=== PATIENT | female | born 1940 | race Caucasian/White ===

== ENCOUNTER 2017-08-01 13:18 | Inpatient (IN) | payer MEDICARE, OTHER ==
[2017-08-01 13:28] LABS: POC GLUCOSE 332 mg/dL (70-99)
[2017-08-01 13:49] LABS: ADD MAN DIFF? NO; BASO # 0.1 x10^3/uL (0.0-0.2); BASO % 1 % (0-3); EOS # 0.3 x10^3/uL (0.0-0.7); EOS % 3 % (0-3); HEMATOCRIT 38.5 % (36.0-47.0); HEMOGLOBIN 12.7 g/dL (12.0-15.5); LYMPH # 2.8 x10^3/uL (1.0-4.8); LYMPH % 28 % (24-48); MEAN CORPUSCULAR HEMOGLOBIN 30 pg (25-35); MEAN CORPUSCULAR HGB CONC 33 g/dL (31-37); MEAN CORPUSCULAR VOLUME 91 fL (79-100); MONO # 0.5 x10^3/uL (0.0-1.1); MONO % 5 % (0-9); NEUT # 6.4 x10^3uL (1.8-7.7); NEUT % 63 % (31-73); PLATELET COUNT 328 x10^3/uL (140-400); RED BLOOD COUNT 4.21 x10^6/uL (3.50-5.40); RED CELL DISTRIBUTION WIDTH 13.8 % (11.5-14.5); WHITE BLOOD COUNT 10.2 x10^3/uL (4.0-11.0)
[2017-08-01 13:55] LABS: AGAP ISTAT 13 mmol/L (6-14); BUN ISTAT 17 mg/dL (8-26); CHLORIDE ISTAT 100 mmol/L (98-110); CREATININE ISTAT 0.7 mg/dL (0.5-1.4); GLUCOSE ISTAT 340 mg/dL (70-99); HEMATOCRIT ISTAT 37 % (36-40); HEMOGLOBIN ISTAT 12.6 g/dL (12-15); ION CA ISTAT 1.29 mmol/L (1.13-1.32); POTASSIUM ISTAT 4.1 mmol/L (3.5-5.0); SODIUM ISTAT 136 mmol/L (135-145); TOT CO2 ISTAT 28 mmol/L (23-32)
[2017-08-01 14:06] LABS: ANION GAP 11 (6-14); BLOOD UREA NITROGEN 18 mg/dL (7-20); BUN/CREATININE RATIO 23 (6-20); CALCIUM 9.4 mg/dL (8.5-10.1); CARBON DIOXIDE 25 mmol/L (21-32); CHLORIDE 100 mmol/L (98-107); CREATININE 0.8 mg/dL (0.6-1.0); GFR 69.4; GLUCOSE 350 mg/dL (70-99); POTASSIUM 4.1 mmol/L (3.5-5.1); SODIUM 136 mmol/L (136-145)
[2017-08-01 14:12] LABS: ALBUMIN 3.6 g/dL (3.4-5.0); ALBUMIN/GLOBULIN RATIO 0.8 (1.0-1.7); ALK PHOS 102 U/L (46-116); ALT (SGPT) 17 U/L (14-59); AST (SGOT) 17 U/L (15-37); TOTAL BILIRUBIN 0.4 mg/dL (0.2-1.0); TOTAL PROTEIN 7.9 g/dL (6.4-8.2)
[2017-08-01 14:15] LABS: TROPONINI < 0.017 ng/mL (0.000-0.055)
[2017-08-01] MEDS: diphenhydrAMINE HCL 25 MG CAPSULE PO ×2 (14:15→21:13)
[2017-08-01 14:31] LABS: BILIRUBIN,URINE NEGATIVE (NEG); CLARITY,URINE CLOUDY; COLOR,URINE YELLOW; GLUCOSE,URINE >=1000 mg/dL (NEG); NITRITE,URINE NEGATIVE (NEG); PH,URINE 6.5; PROTEIN,URINE NEGATIVE (NEG-TRACE); UROBILINOGEN,URINE 0.2 mg/dL (0.2 mg/dL)
[2017-08-01 14:37] LABS: BACTERIA,URINE FEW /HPF (0-FEW); RBC,URINE 0 /HPF (0-2); SQUAMOUS EPITHELIAL CELL,UR FEW /LPF
[2017-08-01 14:52] LABS: NT-PRO BNP 222 pg/mL (0-449)
[2017-08-01] MEDS: diphenhydrAMINE ORAL ELIXIR 12.5 MG/5 ML ML PO (15:08)
[2017-08-01] MEDS: IV NORMAL SALINE 500ML BAG 500 ML IV (15:30)
[2017-08-01 16:16] LABS: INFLUENZA A PATIENT NEGATIVE (NEGATIVE); INFLUENZA B PATIENT NEGATIVE (NEGATIVE); OBC FLU VALID
[2017-08-01 17:33] LABS: POC GLUCOSE 250 mg/dL (70-99)
[2017-08-01] MEDS ORDERED: HYDROcodone/APAP 5/325MG 1 TAB TABLET PO (18:45)
[2017-08-01] MEDS ORDERED: DEXTROSE 50% 25 GM / 50ML DISP.SYRIN. IV (18:45)
[2017-08-01] MEDS ORDERED: ACETAMINOPHEN 325 MG TABLET. PO (20:30)
[2017-08-01 20:51] LABS: POC GLUCOSE 269 mg/dL (70-99)
[2017-08-01] MEDS ORDERED: INSULIN DETEMIR 300 UNITS/3 ML INSULN.PEN. SQ (21:00)
[2017-08-01] MEDS: HYDROcodone/APAP 7.5/325MG 1 TAB TABLET PO (21:13)
[2017-08-01] MEDS: ATORVASTATIN CALCIUM 40 MG TABLET. PO (21:13)
[2017-08-01] MEDS: PHENAZOPYRIDINE 200 MG TABLET. PO (21:13)
[2017-08-01] MEDS: EXENATIDE 10 MCG/0.04 ML 2.4ML PEN.INJCTR. SQ (21:21)
[2017-08-01] MEDS: INSULIN DETEMIR 300 UNITS/3 ML INSULN.PEN. SQ (21:22)
[2017-08-02] MEDS: ZOLPIDEM 5 MG TABLET. PO ×2 (01:15→20:35)
[2017-08-02] MEDS: CYCLOBENZAPRINE 10 MG TABLET. PO (01:15)
[2017-08-02 08:06] LABS: POC GLUCOSE 241 mg/dL (70-99)
[2017-08-02] MEDS: INSULIN ASPART 300 UNITS/3 ML INSULN.PEN SQ ×3 (08:43→17:36)
[2017-08-02 12:06] LABS: POC GLUCOSE 192 mg/dL (70-99)
[2017-08-02] MEDS: CETIRIZINE HCL 10 MG TABLET. PO (13:28)
[2017-08-02 17:15] LABS: POC GLUCOSE 167 mg/dL (70-99)
[2017-08-02] MEDS: diphenhydrAMINE HCL 25 MG CAPSULE PO (17:32)
[2017-08-02 20:28] LABS: POC GLUCOSE 217 mg/dL (70-99)
[2017-08-02] MEDS: ATORVASTATIN CALCIUM 40 MG TABLET. PO (20:35)
[2017-08-02] MEDS: HYDROcodone/APAP 7.5/325MG 1 TAB TABLET PO (20:36)
[2017-08-02] MEDS: INSULIN DETEMIR 300 UNITS/3 ML INSULN.PEN. SQ (20:40)
[2017-08-03] MEDS: diphenhydrAMINE HCL 25 MG CAPSULE PO ×3 (03:50→20:50)
[2017-08-03] MEDS: PHENAZOPYRIDINE 200 MG TABLET. PO (03:52)
[2017-08-03 07:58] LABS: POC GLUCOSE 201 mg/dL (70-99)
[2017-08-03] MEDS: POTASSIUM CHLORIDE 20 MEQ TABLET.ER. PO (08:33)
[2017-08-03] MEDS: PIOGLITAZONE 15 MG TABLET. PO (08:33)
[2017-08-03] MEDS: PANTOPRAZOLE 40 MG TABLET.DR. PO (08:33)
[2017-08-03] MEDS: LACTOBACILLUS RHAMNOSUS GG 1 CAPSULE. PO ×2 (08:34→20:50)
[2017-08-03] MEDS: LISINOPRIL 5 MG TABLET. PO (08:34)
[2017-08-03] MEDS: EXENATIDE 10 MCG/0.04 ML 2.4ML PEN.INJCTR. SQ ×2 (08:34→17:13)
[2017-08-03] MEDS: CETIRIZINE HCL 10 MG TABLET. PO (08:34)
[2017-08-03] MEDS: INSULIN ASPART 300 UNITS/3 ML INSULN.PEN SQ ×3 (08:42→17:15)
[2017-08-03] MEDS ORDERED: CETIRIZINE HCL 10 MG TABLET. PO (09:00)
[2017-08-03] MEDS: HYDROcodone/APAP 7.5/325MG 1 TAB TABLET PO ×2 (11:05→20:53)
[2017-08-03 11:30] LABS: POC GLUCOSE 162 mg/dL (70-99)
[2017-08-03 13:23] LABS: POC GLUCOSE 170 mg/dL (70-99)
[2017-08-03 16:34] LABS: POC GLUCOSE 158 mg/dL (70-99)
[2017-08-03] MEDS: ATORVASTATIN CALCIUM 40 MG TABLET. PO (20:50)
[2017-08-03] MEDS: INSULIN DETEMIR 300 UNITS/3 ML INSULN.PEN. SQ (21:08)
[2017-08-03 21:09] LABS: POC GLUCOSE 162 mg/dL (70-99)
[2017-08-04] MEDS: diphenhydrAMINE HCL 25 MG CAPSULE PO (05:43)
[2017-08-04 07:31] LABS: POC GLUCOSE 221 mg/dL (70-99)
[2017-08-04] MEDS: CETIRIZINE HCL 10 MG TABLET. PO (08:11)
[2017-08-04] MEDS: PIOGLITAZONE 15 MG TABLET. PO (08:11)
[2017-08-04] MEDS: POTASSIUM CHLORIDE 20 MEQ TABLET.ER. PO (08:12)
[2017-08-04] MEDS: LISINOPRIL 5 MG TABLET. PO (08:12)
[2017-08-04] MEDS: LACTOBACILLUS RHAMNOSUS GG 1 CAPSULE. PO (08:12)
[2017-08-04] MEDS: EXENATIDE 10 MCG/0.04 ML 2.4ML PEN.INJCTR. SQ (08:12)
[2017-08-04] MEDS: PANTOPRAZOLE 40 MG TABLET.DR. PO (08:12)
[2017-08-04] MEDS: INSULIN ASPART 300 UNITS/3 ML INSULN.PEN SQ ×2 (08:17→12:03)
[2017-08-04 11:31] LABS: POC GLUCOSE 206 mg/dL (70-99)
[2017-08-04 16:21] LABS: POC GLUCOSE 133 mg/dL (70-99)
== END 2017-08-04 17:41 | disposition home health service (06) | DRG 638 ==
LOC: ER 13:18 → ED HOLD 15:42 → 5 SOUTH 17:47
PROVIDERS: Family Medicine
DX: E11.65 Type 2 diabetes mellitus with hyperglycemia (principal); N39.0 Urinary tract infection, site not specified; E11.42 Type 2 diabetes mellitus with diabetic polyneuropathy; G89.29 Other chronic pain; E78.5 Hyperlipidemia, unspecified; I10 Essential (primary) hypertension; M48.00 Spinal stenosis, site unspecified; M70.62 Trochanteric bursitis, left hip; M70.61 Trochanteric bursitis, right hip; M51.36 Other intervertebral disc degeneration, lumbar region; M47.816 Spondylosis without myelopathy or radiculopathy, lumbar region; K59.00 Constipation, unspecified; K21.9 Gastro-esophageal reflux disease without esophagitis; Z96.641 Presence of right artificial hip joint; Z96.653 Presence of artificial knee joint, bilateral; Z79.4 Long term (current) use of insulin; Z90.710 Acquired absence of both cervix and uterus
CPT/HCPCS: 36415; 70450; 71045; 80047; 80053; 81001; 82962; 83880; 84484; 85025; 87086; 87186; 87804; 87804-59; 93005; 96360; 97161-GP; 97165-GO; 99285-25; J1815; J7040; Q0163

== ENCOUNTER 2018-11-25 19:37 | Emergency (ER) | payer MEDICARE, OTHER ==
[~2018-11-25] VITALS: Ht 170.2 cm; Wt 117.9 kg
[~2018-11-25 19:37] MED LIST: ACET325T9 PO; ATOR40TA59 PO; CELE200C PO; CEPH500C PO; CETI10TA22 PO; CYCL10TA2 PO; DOXY100T PO; ESOM40CA PO; EXEN10PE3 SQ; FLUC150T PO; FURO40TA4 PO; GLIM4TAB2 PO; HYDR-2765 PO; HYDR-3164 PO; INSU300I SQ; LEVO500T59 PO; LISI-338 PO; PIOG30TA41 PO; POTA20TA82 PO
[2018-11-25] MEDS ORDERED: SUCRALFATE 1 GM TABLET. PO ONE (20:45)
--- NOTE | 2018-11-25 21:05 | RAD ---
CHEST PA LATERAL History: ER PATIENT. EPIGASTRIC PAIN. Hx DIABETIC. PRIOR XRAY.. Comparison with August 01, 2017 although no report is available for that exam. Elevation the right hemidiaphragm again seen. Heart size stable. No pneumothorax. No left effusion, there could be a trace right effusion. Mild linear atelectasis left lung base. IMPRESSION: Mild left atelectasis. Possible trace right pleural effusion. Electronically signed by: Phil Mondragon MD (11/25/2018 9:01 PM) [facility]
--- NOTE | 2018-11-25 21:15 | PHYS DOC ---
Past Medical History Past Medical History: Diabetes-Type II, Hypertension Past Surgical History: Hip Replacement, Hysterectomy, Knee Replacement, Other Additional Past Surgical Histo: bilat knee and right hip replacement Alcohol Use: Occasionally Drug Use: None Adult General Chief Complaint Chief Complaint: HEARTBURN/GI DISTRESS HPI HPI Patient is a 78 year old female who presents to the ED with a chief complaint of epigastric abdominal pain. Patient states that the symptoms have been present for the last 2 days. Patient denies previous pain like this. Patient denies fever, chills, nausea, vomiting, diarrhea, dysuria, shortness of breath. Review of Systems Review of Systems Constitutional: Denies fever or chills [] Eyes: Denies change in visual acuity, redness, or eye pain [] HENT: Denies nasal congestion or sore throat [] Respiratory: Denies cough or shortness of breath [] Cardiovascular: No additional information not addressed in HPI [] GI: Complains of epigastric abdominal tenderness : Denies dysuria or hematuria [] Musculoskeletal: Denies back pain or joint pain [] Integument: Denies rash or skin lesions [] Neurologic: Denies headache, focal weakness or sensory changes [] Endocrine: Denies polyuria or polydipsia [] All other systems were reviewed and found to be within normal limits, except as documented in this note. Current Medications Current Medications Current Medications Medications (Trade) Dose Ordered Sig/Shania Start Time Stop Time Status Last Admin Dose Admin Sucralfate (Carafate) 1 gm 1X ONCE 11/25/18 20:45 11/25/18 20:49 DC 11/25/18 21:54 1 GM Allergies Allergies Allergies Coded Allergies Type Severity Reaction Last Updated Verified No Known Drug Allergies 06/16/16 No Physical Exam Physical Exam Constitutional: Well developed, well nourished, no acute distress, non-toxic appearance. HENT: Normocephalic, atraumatic, normocaphalic Eyes: PERRL, EOMI Neck: Normal range of motion, no tenderness, supple Cardiovascular:Heart rate regular rhythm, no murmur Resp: Bilateral breath sounds clear to auscultation Abdomen: Epigastric abdominal tenderness Skin: Warm, dry, no erythema, no rash. Back: No tenderness, no CVA tenderness. Extremities: No tenderness, ROM intact, no edema. Neurologic: Alert and oriented X 3, normal motor function, normal sensory function, no focal deficits noted. Psychologic: Affect normal, judgement normal, mood normal. Current Patient Data Vital Signs Vital Signs Date Time Temp Pulse Resp B/P (MAP) Pulse Ox O2 Delivery O2 Flow Rate FiO2 11/25/18 22:54 77 22 164/79 (107) 98 Room Air 11/25/18 19:49 98.0 98.0 Lab Values Laboratory Tests Test 11/25/18 21:21 11/25/18 21:30 White Blood Count 6.8 x10^3/uL (4.0-11.0) Red Blood Count 3.75 x10^6/uL (3.50-5.40) Hemoglobin 10.9 g/dL (12.0-15.5) L Hematocrit 32.8 % (36.0-47.0) L Mean Corpuscular Volume 87 fL (79-100) Mean Corpuscular Hemoglobin 29 pg (25-35) Mean Corpuscular Hemoglobin Concent 33 g/dL (31-37) Red Cell Distribution Width 15.3 % (11.5-14.5) H Platelet Count 293 x10^3/uL (140-400) Neutrophils (%) (Auto) 59 % (31-73) Lymphocytes (%) (Auto) 31 % (24-48) Monocytes (%) (Auto) 6 % (0-9) Eosinophils (%) (Auto) 3 % (0-3) Basophils (%) (Auto) 1 % (0-3) Neutrophils # (Auto) 4.0 x10^3uL (1.8-7.7) Lymphocytes # (Auto) 2.1 x10^3/uL (1.0-4.8) Monocytes # (Auto) 0.4 x10^3/uL (0.0-1.1) Eosinophils # (Auto) 0.2 x10^3/uL (0.0-0.7) Basophils # (Auto) 0.1 x10^3/uL (0.0-0.2) Sodium Level 137 mmol/L (136-145) Potassium Level 3.9 mmol/L (3.5-5.1) Chloride Level 102 mmol/L (98-107) Carbon Dioxide Level 27 mmol/L (21-32) Anion Gap 8 (6-14) Blood Urea Nitrogen 22 mg/dL (7-20) H Creatinine 0.8 mg/dL (0.6-1.0) Estimated GFR (Cockcroft-Gault) 69.0 BUN/Creatinine Ratio 28 (6-20) H Glucose Level 185 mg/dL (70-99) H Calcium Level 9.6 mg/dL (8.5-10.1) Total Bilirubin 0.4 mg/dL (0.2-1.0) Aspartate Amino Transferase (AST) 17 U/L (15-37) Alanine Aminotransferase (ALT) 16 U/L (14-59) Alkaline Phosphatase 71 U/L (46-116) Troponin I Quantitative 0.018 ng/mL (0.000-0.055) TB-Ana-W-Type Natriuretic Peptide 547 pg/mL (0-449) H Total Protein 7.1 g/dL (6.4-8.2) Albumin 3.6 g/dL (3.4-5.0) Albumin/Globulin Ratio 1.0 (1.0-1.7) Lipase 98 U/L (73-393) Urine Collection Type Unknown Urine Color Yellow Urine Clarity Clear Urine pH 7.0 Urine Specific [place] 1.015 Urine Protein Negative mg/dL (NEG-TRACE) Urine Glucose (UA) Negative mg/dL (NEG) Urine Ketones (Stick) Negative mg/dL (NEG) Urine Blood Negative (NEG) Urine Nitrite Negative (NEG) Urine Bilirubin Negative (NEG) Urine Urobilinogen Dipstick 0.2 mg/dL (0.2 mg/dL) Urine Leukocyte Esterase Negative (NEG) Urine RBC 0 /HPF (0-2) Urine WBC Occ /HPF (0-4) Urine Squamous Epithelial Cells Few /LPF Urine Bacteria 0 /HPF (0-FEW) Laboratory Tests 11/25/18 21:21 Laboratory Tests 11/25/18 21:21 EKG EKG EKG interpretation: 20:21 on 11/25/2018 HR: 74 Sinus rhythm with PVCs Regular intervals Normal axis Nonspecific ST changes No STEMI [] Radiology/Procedures Radiology/Procedures [] Impressions: PROCEDURE: CHEST PA & LATERAL CHEST PA LATERAL History: ER PATIENT. EPIGASTRIC PAIN. Hx DIABETIC. PRIOR XRAY.. Comparison with August 01, 2017 although no report is available for that exam. Elevation the right hemidiaphragm again seen. Heart size stable. No pneumothorax. No left effusion, there could be a trace right effusion. Mild linear atelectasis left lung base. IMPRESSION: Mild left atelectasis. Possible trace right pleural effusion. Electronically signed by: Phil Mondragon MD (11/25/2018 9:01 PM) [facility] Course & Med Decision Making Course & Med Decision Making Pertinent Labs and Imaging studies reviewed. (See chart for details) Ordered labs, UA, chest x-ray, EKG, IV. I also ordered Carafate and Pepcid 20 mg IV. EKG does not show acute changes. Chest x-ray does not show acute disease. Labs are within normal limits. Troponin is 0.018. Patient states that she is feeling better after Pepcid and Carafate. She states that the abdominal pain is resolved. I discussed her case with Dr. Benson's partner who is on-call tonight. Patient has the chest pain for 2 days, troponin is 0.018. Also patient is feeling better with Pepcid and Carafate. Wanted to repeat her 3 hour troponin but patient does not want us to draw any more blood. She states that she wants to go home and follow up with Dr. Allred as an outpatient. Discussed results and plan of care with patient. Patient is instructed to follow up with PCP in one to 2 days. Appropriate discharge instructions given to patient to return to the ED or to seek immediate medical evaluation. Dragon Disclaimer Dragon Disclaimer This electronic medical record was generated, in whole or in part, using a voice recognition dictation system. Departure Departure Referrals: PHIL ALLRED MD (PCP) Scripts Sucralfate (CARAFATE) 1 Gm Tablet 1 TAB PO QDay, #30 TAB 1 Refill Prov: SEJAL JENKINS E DO 11/26/18 Famotidine (PEPCID) 20 Mg Tablet 20 MG PO HS, #20 TAB Prov: SEJAL JENKINS E DO 11/26/18 SEJAL JENKINS E DO November 25, 2018 21:15
[2018-11-25 21:29] LABS: BASO # 0.1 x10^3/uL (0.0-0.2); BASO % 1 % (0-3); EOS # 0.2 x10^3/uL (0.0-0.7); EOS % 3 % (0-3); HEMATOCRIT 32.8 % (36.0-47.0); HEMOGLOBIN 10.9 g/dL (12.0-15.5); LYMPH # 2.1 x10^3/uL (1.0-4.8); LYMPH % 31 % (24-48); MEAN CORPUSCULAR HEMOGLOBIN 29 pg (25-35); MEAN CORPUSCULAR HGB CONC 33 g/dL (31-37); MEAN CORPUSCULAR VOLUME 87 fL (79-100); MONO # 0.4 x10^3/uL (0.0-1.1); MONO % 6 % (0-9); NEUT % 59 % (31-73); PLATELET COUNT 293 x10^3/uL (140-400); RED BLOOD COUNT 3.75 x10^6/uL (3.50-5.40); RED CELL DISTRIBUTION WIDTH 15.3 % (11.5-14.5); WHITE BLOOD COUNT 6.8 x10^3/uL (4.0-11.0)
[2018-11-25 21:39] LABS: BILIRUBIN,URINE NEGATIVE (NEG); CLARITY,URINE CLEAR; COLOR,URINE YELLOW; NITRITE,URINE NEGATIVE (NEG); PROTEIN,URINE NEGATIVE (NEG-TRACE); UROBILINOGEN,URINE 0.2 mg/dL (0.2 mg/dL)
[2018-11-25 21:45] LABS: BACTERIA,URINE 0 /HPF (0-FEW); RBC,URINE 0 /HPF (0-2); SQUAMOUS EPITHELIAL CELL,UR FEW /LPF; WBC,URINE OCC /HPF (0-4)
[2018-11-25 21:49] LABS: CALCIUM 9.6 mg/dL (8.5-10.1); CREATININE 0.8 mg/dL (0.6-1.0); POTASSIUM 3.9 mmol/L (3.5-5.1)
[2018-11-25 21:54] LABS: ALBUMIN 3.6 g/dL (3.4-5.0); TOTAL BILIRUBIN 0.4 mg/dL (0.2-1.0); TOTAL PROTEIN 7.1 g/dL (6.4-8.2)
[2018-11-25 22:54] VITALS: BP 164/79
[2018-11-26] MEDS ORDERED: SUCR1TAB35 PO (00:05)
[2018-11-26] MEDS ORDERED: FAMO-63 PO (00:05)
--- NOTE | 2018-11-26 07:01 | EKG ---
[facility] [address] [place] [address] Test Date: 2018-11-25 Test Time: 20:21:02 Pat Name: LYN TRONCOSO Department: Room: Gender: F [employer] Supervisor: : 1940 Requested By: SEJAL JENKINS Order Number: [id number] Reading MD: Barrett Escamilla Measurements Intervals [place] Rate: 74 P: 90 UT: 172 QRS: 14 QRSD: 86 T: 15 QT: 390 QTc: 438 Interpretive Statements SINUS RHYTHM VENTRICULAR PREMATURE COMPLEX(ES) Electronically Signed On 11-26-2018 10:16:56 CDT by Barrett Escamilla
== END 2018-11-26 00:09 | disposition home or self-care (01) ==
LOC: ER 19:37
DX: R10.13 Epigastric pain (principal); R07.89 Other chest pain; E11.9 Type 2 diabetes mellitus without complications; I10 Essential (primary) hypertension; Z90.710 Acquired absence of both cervix and uterus; Z96.653 Presence of artificial knee joint, bilateral; Z96.641 Presence of right artificial hip joint
CPT/HCPCS: 36415; 71046; 80053; 81001; 83690; 83880; 84484; 85025; 93005; 99285-25

== ENCOUNTER → 2019-09-15 | Outpatient (CLI) | payer MEDICARE, OTHER ==
[~2019-09-15] MED LIST changes: -CETI10TA22 PO; +CETI10TA24 PO; +FAMO-63 PO; -GLIM4TAB2 PO; +GLIM4TAB8 PO; +POTA20TA4 PO; -POTA20TA82 PO; +SUCR1TAB35 PO
--- NOTE | 2019-09-15 16:32 | KCIC ---
EXAM: CHEST PA LATERAL INDICATION: Wheezing. TECHNIQUE: PA and lateral views COMPARISON: None FINDINGS: The heart size is normal. The great vessels appear unremarkable. There is no hilar or mediastinal mass. The lungs are clear. There is no pleural effusion or pneumothorax. There are no significant osseous abnormalities. There is persistent right diaphragmatic elevation. IMPRESSION: Persistent right diaphragmatic elevation. No acute cardiopulmonary process shown. Electronically signed by: Franklin Chacon MD (09/15/2019 4:29 PM) [facility]
== END | disposition home or self-care (01) ==
LOC: KCIC 16:04
PROVIDERS: ATTEND Family Medicine
DX: R06.2 Wheezing (principal)
CPT/HCPCS: 71046

== ENCOUNTER → 2020-04-04 | Outpatient (CLI) | payer MEDICARE, OTHER ==
[~2020-04-04] MED LIST changes: -CETI10TA24 PO; +CETI10TA74 PO
--- NOTE | 2020-04-04 15:36 | RAD ---
EXAM: Carotid Doppler sonogram. HISTORY: Left carotid bruit. TECHNIQUE: Rg scale and color Doppler sonographic evaluation of the neck with spectral waveform analysis was performed and static images are submitted for review. FINDINGS: There is mild atherosclerotic plaque within the proximal internal carotid arteries. The peak systolic velocity within the right common carotid artery is 94 cm/sec. The peak systolic velocity within the right internal carotid artery is 93 cm/sec and the end diastolic velocity within the right internal carotid artery is 25 cm/sec. The right ICA/CCA ratio is 0.99. The peak systolic velocity within the left common carotid artery is 88 cm/sec. The peak systolic velocity within the left internal carotid artery is 137 cm/sec and the end diastolic velocity within the left internal carotid artery is 49 cm/sec. The left ICA/CCA ratio is 1.55. There is normal antegrade flow within both vertebral arteries. IMPRESSION: 1. Elevated peak systolic velocity and end-diastolic velocity within the left ICA, suggesting 50-69 percent stenosis. 2. No Doppler evidence of greater than 50 percent stenosis involving the right ICA. PQRS Compliance Statement - Stenosis calculations for CT, MR and conventional angiography are based upon measurement of the distal ICA diameter in accordance with the NASCET methodology. Stenosis calculations for carotid ultrasound studies are derived from validated velocity criteria which are known to correlate with the NASCET methodology. Electronically signed by: Maame Aleman MD (04/04/2020 3:33 PM) [facility]
--- NOTE | 2020-04-05 13:35 | CARD ---
MR#: [id number] Date of Study: 04/04/2020 Ordering Physician: BRENDAN PATEL, Referring Physician: BRENDAN PATEL, Tech: Carmen Gómez MAMI APPROVED REPORT EXAM: Two-dimensional and M-mode echocardiogram with Doppler and color Doppler. Other Information Quality : Good INDICATION Murmur RISK FACTORS Obesity 2D DIMENSIONS RVDd2.8 (2.9-3.5cm)Left Atrium(2D)3.7 (1.6-4.0cm) IVSd0.9 (0.7-1.1cm)Aortic Root(2D)2.7 (2.0-3.7cm) LVDd5.1 (3.9-5.9cm)LVOT Diameter2.0 (1.8-2.4cm) PWd0.9 (0.7-1.1cm)LVDs3.6 (2.5-4.0cm) FS (%) 28.8 %SV68.4 ml LVEF(%)55.1 (>50%) Aortic Valve AoV Peak Pietro.152.4cm/sAoV VTI34.3cm AO Peak GR.9.3mmHgLVOT Peak Pietro.111.8cm/s LVOT VTI 25.89cmAO Mean GR.5mmHg FIDE (VMAX)2.09rp6FMN (VTI)2.47cm2 Mitral Valve MV E Vbxnrenp007.2cm/sMV DECEL VBWW161kj MV A Ffdwcofi479.3cm/sMV TRW12hf E/A Ratio1.0MVA (PHT)5.33cm2 TDI E/Lateral E'12.6E/Medial E'13.4 Tricuspid Valve TR P. Zodfqlkb778ky/sRAP ZDPUHDXR7zaKr TR Peak Gr.61rnEdZDHZ53njEr Pulmonary Vein S1 Dyzbscjr56.8cm/sD2 Ppuvnrae70.0cm/s LEFT VENTRICLE The left ventricle is normal size. There is normal left ventricular wall thickness. The left ventricu lar systolic function is normal and the ejection fraction is within normal range. The Ejection Fracti on is 55-60%. There is normal LV segmental wall motion. Transmitral Doppler flow pattern is Grade I-a bnormal relaxation pattern. RIGHT VENTRICLE The right ventricle is normal size. The right ventricular systolic function is normal. ATRIA The left atrium size is normal. The right atrium size is normal. The interatrial septum is intact wit h no evidence for an atrial septal defect or patent foramen ovale as noted on 2-D or Doppler imaging. AORTIC VALVE The aortic valve is calcified but opens well. Doppler and Color Flow revealed no significant aortic r egurgitation. There is no significant aortic valvular stenosis. MITRAL VALVE Mitral annular calcification is mild. There is no evidence of mitral valve prolapse. There is no mitr al valve stenosis. Doppler and Color-flow revealed mild mitral regurgitation. TRICUSPID VALVE The tricuspid valve is normal in structure and function. Doppler and Color Flow revealed mild tricusp id regurgitation. There is moderate pulmonary hypertension. The PA pressure was estimated at 49 mmHg. There is no tricuspid valve stenosis. PULMONIC VALVE The pulmonic valve is not well visualized. Doppler and Color Flow revealed no pulmonic valvular regur gitation. There is no pulmonic valvular stenosis. GREAT VESSELS The aortic root is normal in size. The ascending aorta is normal in size. The IVC is normal in size a nd collapses >50% with inspiration. PERICARDIAL EFFUSION There is no evidence of significant pericardial effusion. Critical Notification Critical Value: No <Conclusion> The left ventricular systolic function is normal and the ejection fraction is within normal range. Th e Ejection Fraction is 55-60%. There is normal LV segmental wall motion. Doppler and Color Flow revealed mild tricuspid regurgitation. There is moderate pulmonary hypertensio n. The PA pressure was estimated at 49 mmHg. Signed by : Nino Yan, Electronically Approved : 04/05/2020 13:34:43
== END | disposition home or self-care (01) ==
LOC: US 12:46
PROVIDERS: ATTEND Internal Medicine Cardiovascular Disease
DX: I08.3 Combined rheumatic disorders of mitral, aortic and tricuspid valves (principal); I27.20 Pulmonary hypertension, unspecified; I65.23 Occlusion and stenosis of bilateral carotid arteries; R09.89 Other specified symptoms and signs involving the circulatory and respiratory systems
CPT/HCPCS: 93306; 93880

== ENCOUNTER → 2021-05-27 | Outpatient (CLI) | payer MEDICARE, OTHER ==
[~2021-05-27] MED LIST changes: +CYCL10TA19 PO; -CYCL10TA2 PO; -LISI-338 PO; +LISI5TAB15 PO
--- NOTE | 2021-05-27 14:54 | RAD ---
MR#: [id number] Date of Study: 05/27/2021 Ordering Physician: BRENDAN PATEL, Referring Physician: BRENDAN PATEL, Tech: Luis Felipe Godoy MBA, RDMS, RVT, RDCS, RTR APPROVED REPORT Patient Location : OUT-PATIENT Indications Lower Extremity Edema : Bilateral Findings Grayscale images of bilateral saphenofemoral junctions did not show any obvious thrombus. The right greater saphenous vein measured 5.7 mm and the left greater saphenous vein measured 4.4 cm at the sap henofemoral junction. Spectral waveform and color duplex analysis was performed. No significant reflux was seen in bilater al greater and lesser saphenous veins. Critical Notification Critical Value: No <Conclusion> No significant reflux involving bilateral greater and lesser saphenous veins. Signed by : Rick Abernathy, Electronically Approved : 05/27/2021 14:53:15
--- NOTE | 2021-05-27 14:58 | RAD ---
MR#: [id number] Date of Study: 05/27/2021 Ordering Physician: BRENDAN PATEL, Referring Physician: BRENDAN PATEL, Tech: Luis Felipe Godoy MBA, RDMS, RVT, RDCS, RTR APPROVED REPORT Bilateral Lower Extremity Venous Study for DVT Patient Location: OUT-PATIENT Indications Lower Extremity Edema: Bilateral Vein Imaging (Right) CFV (R): Compressible SFJ (R): Compressible FEM (R): Compressible POP (R): Compressible DFV (R): Compressible GSV (R): Spontaneous Vein Imaging (Left) CFV (L): Compressible SFJ (L): Compressible FEM (L): Compressible POP (L): Compressible DFV (L): Compressible GSV (L): Spontaneous Doppler Evaluation (Right) CFV (R): Spontaneous POP (R):Spontaneous Doppler Evaluation (Left) CFV (L):Spontaneous POP (L):Spontaneous Findings Grayscale images of bilateral lower extremity deep veins was obtained along with spectral waveform an d color duplex flow analysis. The common femoral, superficial femoral and popliteal veins were fully compressible with normal spectral waveforms and color duplex flow. The calf veins were not well vis ualized. No obvious deep venous thrombosis was noted. Critical Notification Critical Value: No <Conclusion> Bilateral lower extremity venous duplex scan did not show any obvious deep venous thrombosis. Signed by : Rick Abernathy, Electronically Approved : 05/27/2021 14:57:43
--- NOTE | 2021-05-27 15:03 | RAD ---
MR#: [id number] Date of Study: 05/27/2021 Ordering Physician: BRENDAN PATEL, Referring Physician: BRENDAN PATEL, Tech: Luis Felipe Godoy MBA, RDMS, RVT, RDCS, RTR APPROVED REPORT Patient Location: OUT-PATIENT Laterality:Bilateral Indications CAROTID ARTERY DISEASE Doppler Spectral Velocity Analysis Right Left pCCA 128/13 cm/spCCA 120/14 cm/s mCCA 149/22 cm/smCCA 86/16 cm/s dCCA 119/18 cm/sdCCA 91/16 cm/s Bulb 107/16 cm/sBulb 89/16 cm/s ECA 120/ cm/sECA 95/ cm/s pICA 131/26 cm/spICA 88/15 cm/s Sourav 114/25 cm/smICA 117/21 cm/s dICA 129/23 cm/sdICA 112/23 cm/s Vert. 93/ cm/sVert. 45/ cm/s Subcl. 139/ cm/sSubcl. 136/ cm/s ICA/CCA 0.88ICA/CCA 0.98 Findings Grayscale images of bilateral carotid vessels showed mild intimal hyperplasia and mild diffuse plaque . Spectral waveform analysis and color duplex flow imaging was within normal limits bilaterally sugg estive of 0 to less than 50% stenosis. The ICA to CCA ratios are within normal limits. There was an tegrade flow in vertebral arteries bilaterally. No significant stenosis was noted. Critical Notification Critical Value: No <Conclusion> No significant extracranial carotid artery stenosis bilaterally. Signed by : Rick Abernathy, Electronically Approved : 05/27/2021 15:03:32
== END ==
LOC: US 13:02
PROVIDERS: ATTEND Internal Medicine Cardiovascular Disease
DX: R60.0 Localized edema (principal); I77.9 Disorder of arteries and arterioles, unspecified
CPT/HCPCS: 93880; 93970

== ENCOUNTER → 2021-06-24 | Outpatient (CLI) | payer MEDICARE, OTHER ==
[~2021-06-24] MED LIST changes: +REGADENOSON 0.4 MG/5 ML DISP.SYRIN. IV ONE
--- NOTE | 2021-06-24 17:28 | RAD ---
MR#: [id number] Date of Study: 06/24/2021 Ordering Physician: BRENDAN ESCAMILLA, Referring Physician: ROSETTA WISE Tech: HALEY Reid ARRT (R) (N) APPROVED REPORT Test Type: Pharmacological Stress Nurse/Tech: Belkys Agudelo RN Test Indications: Chest Pain Cardiac History: HTN, Hypercholesterolemia, See EMR. Medications: Insulin, See EMR. Medical History: DM, See EMR. Resting ECG: SR Resting Heart Rate: 68 bpm Resting Blood Pressure: 189/61mmHg Pretest Chest Pain: No chest pain Nurse/Tech Notes Lungs CTA, Heart tones regular. Pharm. Details Pharmacologic stress testing was performed using 0.4mg per 5ml of regadenoson given intravenously ove r 7-10 seconds. Stress Symptoms Nausea and Dizziness, resolved by the end of test. POST EXERCISE Reason for Termination: Infusion complete Max HR: 88 bpm Max Blood Pressure: 174/68mmHg Blood Pressure response to exercise: Normal blood pressure response during stress. Heart Rate response to exercise: WNL Chest Pain: No. Arrhythmia: No. ST Change: No. INTERPRETATION Stress EKG Conclusion: The resting EKG shows a sinus rhythm with mild nonspecific T wave changes. This stress EKG shows no significant change from baseline. No EKG evidence of stress-induced ischemia. Imaging Protocol IMAGE PROTOCOL: Rest Tc-99m/stress Tc-99m 1 day Rest: Stress: Viability: Radiopharm.Tc99m WwbykspbcBc12h Sestamibi Dose10.5mCi 32.4mCi Img Date 06/24/2021 06/24/2021 Inj-Img Bore01ioa. 60min. Rest Admin Site:IV - Left AntecubitalAdministrator:HALEY Reid ARRT (R)(N) Stress Admin Site: IV - Right AntecubitalAdministrator: RT Niecy (R)(N) STRESS DATA End Diast. Vol.93.0mlAv. Heart Rate86.0bpm End Syst. Vol.15.0mlCO Index BSA0.0L/min Myocardial Sjkj949.0gEject. Ynqqhmor59.0% Stress Rates Pk. Fill Rate3.65EDV/secLVtime Pk. Fill 128.02msec Pk. Empty Rate3.51ESV/secLVtime Pk. Eject74.72msec / Pk. Fill1.65EDV/sec Stress Scores Regional WT0.00Summed WT0.00 Regional WM0.00Summed WM0.00 LV Perfusion The stress scans show a slight anterior septal defect. The rest scans showed no significant defects. Nuclear imaging shows a slight stress defect. This is a borderline finding but a very small area of ischemia cannot be entirely excluded. Wall Motion Left ventricular systolic function is normal with no regional wall motion abnormalities and an ejecti on fraction of greater than 70%. LV Perf. Quant 17 Seg. SSS2.00 17 Seg. SRS2.00 17 Seg. SDS1.00 Stress Defect Extent (% LAD)0.00Rest Defect Extent (% LAD)0.00Rev. Defect Extent (% LAD)0.00 Stress Defect Extent (% LCX) 30.00Rest Defect Extent (% LCX)0.00Rev. Defect Extent (% LCX)30.00 Stress Defect Extent (% RCA)0.00Rest Defect Extent (% RCA)0.00Rev. Defect Extent (% RCA)0.00 Stress Defect Extent (% ELLIOT)5.20Rest Defect Extent (% ELLIOT)0.00Rev. Defect Extent (% ELLIOT)5.20 Conclusion 1. No EKG evidence of stress-induced ischemia. 2. Slight stress defect in the anterior septal region. 3. Normal left ventricular systolic function with an ejection fraction of greater than 70%. 4. Moderate to moderately low risk Lexiscan nuclear stress test. Signed by : Brendan Escamilla MD Electronically Approved : 06/24/2021 17:27:45
== END ==
LOC: NM 09:22
PROVIDERS: ATTEND Internal Medicine Cardiovascular Disease
DX: R07.9 Chest pain, unspecified (principal)
CPT/HCPCS: 78452; 93017; A9500; J2785